=== PATIENT | female | born 2000 | race Caucasian/White ===

== ENCOUNTER 2022-06-15 19:04 | Emergency (ER) | payer MEDICAID, SELFPAY ==
--- NOTE | 2022-06-15 19:15 | ED.SKABFB ---
HPI - Skin/Abscess/Foreign Bdy General Chief complaint: Wound/Laceration Stated complaint: L breast painful lump; 4 days Time Seen by Provider: 06/15/22 19:09 Source: patient and family Limitations: no limitations History of Present Illness HPI narrative: this is a 21-year-old female with a 4 day history of painful lesion on the left breast area in the 1 o'clock position of the left areolar that is tender and warm to touch with no drainage no tender lymph nodes no fever chills no nausea vomiting. Patient is not nursing and there is no drainage or crustiness to the painful lesion. complaint: abscess/boil Onset (ago): day(s) Quality: aching Pain Consistency: constant Relieving factors: none Exacerbating factors: none and palpation Related Data Allergies Allergy/AdvReac Type Severity Reaction Status Date / Time Penicillins Allergy Unknown Verified 06/15/22 19:18 Review of Systems Review of Systems: All systems reviewed & are unremarkable except as noted in HPI and below PMFSH Past Medical History Medical History Patient denies medical problems Exam Const: General: healthy appearing Nutritional Appearance: well nourished Orientation/consciousness: patient oriented x3 Limitations: no limitations HENMT: Head: normal to inspection Ears: external ears normal Face and sinus: normal facial exam Mouth: Yes Normal oral and palatal mucosa present Eyes: EOM: EOMs intact bilaterally Neck: Neck: normal visual inspection Chest: Chest palpation & inspection: normal inspection of the chest Other: painful small 2cm lesion is warm and tender to touch on the left areolar at about 1 o'clock position with no drainage Cardio: Rate: regular rate Rhythm: regular rhythm GI: GI Palp: Yes Soft to palpation Auscultation: normal bowel sounds Skin: General skin exam: normal color Wounds: wounds noted Neuro: General: patient oriented x3 and no meningeal signs Psych: Mental Status: mental status grossly normal Affect: normal affect Course Course Emergency Course: dose of Bactrim p.o. was given while in the ER and medication sent to patient's local pharmacy. Critical Care Time Critical Care Time Critical Care Time: No Discharge Plan Discharge Clinical Impression: Breast abscess of female Patient Disposition: Home, Self-Care Condition: Stable Instructions: Antibiotic Form, Abscess (ED) Additional Instructions: take medicine as prescribed, can use warm compress to affected area as needed and can take Tylenol or Motrin for pain and inflammation and follow-up primary care physician if symptoms persist or worsen. Prescriptions: New sulfamethoxazole-trimethoprim [Bactrim DS] 800-160 mg tablet 1 tablet PO Q12H Qty: 20 0RF Follow-up/Referrals: UNKNOWN,DOCTOR [Primary Care Provider] - Time of Disposition: 19:21
[2022-06-15 19:16] VITALS: BP 128/91; PULSE 105; RESP 16; TEMP 36.1; O2SAT 99
[2022-06-15] MEDS: SULFAMETHOXAZOLE/TRIMETHOPRIM 800/160 MG DS TABLET 1 TAB PO (19:22)
[2022-06-15 19:36] VITALS: BP 128/80; PULSE 84; RESP 18; O2SAT 99
== END 2022-06-15 19:38 | disposition home or self-care (01) ==
PROVIDERS: Emergency Provider Emergency Medicine
DX: N61.1 Abscess of the breast and nipple (principal)
CPT/HCPCS: 99283; A9270

== ENCOUNTER 2022-08-14 11:25 | Emergency (ER) | payer MEDICAID, SELFPAY ==
[2022-08-14 11:30] VITALS: BP 126/76; PULSE 89; RESP 16; TEMP 36.7; O2SAT 97
[2022-08-14 11:35] VITALS: BP 126/76; PULSE 89; RESP 18; TEMP 36.7; O2SAT 97
--- NOTE | 2022-08-14 12:15 | ED.URI ---
HPI - URI/Sore Throat General Chief Complaint: Shortness of Breath/Dyspnea Stated Complaint: fever/Sob Source: patient and RN notes reviewed Mode of arrival: ambulatory Limitations: no limitations History of Present Illness MD elicited complaint: fever, cough and sore throat Onset (ago): day(s) (1) Consistency: constant Severity: moderate Description of mucous: clear Able to tolerate fluids by mouth: Yes Exacerbating factors: nothing Relieving factors: nothing Context: sick contacts ( both COVID and influenza) Associated symptoms: fever, chills, myalgias, headache and sore throat Treatments prior to arrival: none Related Data Home Medications Medication Instructions Recorded Confirmed No Home Medications 08/14/22 08/14/22 Allergies Allergy/AdvReac Type Severity Reaction Status Date / Time Penicillins Allergy Unknown Verified 08/14/22 11:49 Review of Systems Review of Systems: All systems reviewed & are unremarkable except as noted in HPI and below PMFSH Past Medical History Medical History (Updated 08/14/22 @ 12:54 by Adam De La Cruz MD) Patient denies medical problems Surgical History Surgical History (Updated 08/14/22 @ 12:23 by Adam De La Cruz MD) Scalp hematoma Social History Social History (Updated 08/14/22 @ 12:23 by Adam De La Cruz MD) Smoking status: Former smoker Alcohol intake: current Alcohol use details: Rare Substance use: never Exam Const: General: healthy appearing, no acute distress and alert Nutritional Appearance: well nourished and obese Orientation/consciousness: patient oriented x3 Limitations: no limitations Other: female tech in room during examination. HENMT: Head: normal to inspection Face/Nose/Sinus: Normal external nose present Face and sinus: normal facial exam Mouth: Yes moist mucous membranes Throat: posterior oropharynx normal Eyes: Conjunctivae: conjunctivae normal Pupils: Equal, round and reactive pupils present EOM: EOMs intact bilaterally Neck: Neck: normal visual inspection and no lymphadenopathy Resp: Effort & Inspection: normal respiratory effort Auscultation: clear to auscultation bilaterally Cardio: Rate: regular rate Rhythm: regular rhythm GI: GI Palp: Yes Soft to palpation and No Tenderness to palpation present (GI) Auscultation: normal bowel sounds Back/Spine/Pelvis: Cervical Spine: cervical ROM normal Thoracic/Lumbar Spine: thoraco-lumbar ROM normal Skin: General skin exam: normal color Rashes: no rashes Neuro: General: patient oriented x3, moves all extremities, no focal motor deficits and CN's II-XI intact bilaterally Speech: normal speech Gait exam (Neuro): Normal gait present Extrem: General: normal to inspection and no clubbing, cyanosis or edema Psych: Mental Status: mental status grossly normal Affect: normal affect Attitude: cooperative Course Vital Signs Vital signs: Vital Signs Temperature 36.7 C 08/14/22 11:30 Pulse Rate 89 08/14/22 11:30 Respiratory Rate 16 08/14/22 11:30 Blood Pressure 126/76 08/14/22 11:30 Pulse Oximetry 97 08/14/22 11:30 Oxygen Delivery Room Air 08/14/22 11:30 Temperature 36.7 C 08/14/22 11:35 Pulse Rate 89 08/14/22 11:35 Respiratory Rate 18 08/14/22 11:35 Blood Pressure 126/76 08/14/22 11:35 Pulse Oximetry 97 08/14/22 11:35 Oxygen Delivery Room Air 08/14/22 11:35 MDM - URI/Sore Throat Differential Diagnosis Differential diagnosis: Likely upper respiratory infection, viral infection, bronchitis, influenza and other (COVID) Lab Data Attestation: I reviewed the patient's lab results. Labs: Lab Results 08/14/22 Range/Units 11:56 Influenza A (RT-PCR) Pending Influenza B (RT-PCR) Pending RSV (RT-PCR) Pending SARS-CoV-2 RNA (RT-PCR) Pending Discharge Plan Discharge Clinical Impression: Viral infection Patient Disposition: Home, Self-Care Condition: Stable Instructions: Upper Respirato
[2022-08-14 12:19] LABS: Influenza A QL RT-PCR Negative (Negative); Influenza B QL RT-PCR Negative (Negative); RSV RNA, RT-PCR Negative (Negative); SARS-CoV-2 RNA PCR Negative (Negative)
[2022-08-14 12:50] VITALS: BP 124/60; PULSE 84; RESP 16; TEMP 36.8; O2SAT 98
== END 2022-08-14 13:00 | disposition home or self-care (01) ==
PROVIDERS: Emergency Provider Emergency Medicine
DX: B34.9 Viral infection, unspecified (principal); Z20.822 Contact with and (suspected) exposure to COVID-19
CPT/HCPCS: 87637; 99283

== ENCOUNTER 2022-11-01 09:30 | Emergency (ER) | payer MEDICAID, SELFPAY ==
--- NOTE | ~2022-11-01 | CT_ITS ---
Non-contrast Head CT History: Headache, head trauma Technique: Axial non-contrast imaging of the brain was performed. Dose reduction technique was used on this scan by utilizing automated exposure control and iterative reconstruction technique. The dose -length product (DLP) was 605.33 mGy-cm. Findings: There is no evidence of intracranial hemorrhage, mass lesion, or acute infarct. Brain par enchyma appears normal. The ventricles and subarachnoid spaces are normal in size. The calvarium ap pears normal. The visualized paranasal sinuses and mastoid air cells are clear. Impression: No significant abnormality seen. Reviewed, dictated and finalized at location . TER MANAGER Impression: No significant abnormality seen.
[2022-11-01 09:30] VITALS: BP 135/85; PULSE 85; RESP 16; TEMP 36.6; O2SAT 99
[2022-11-01 09:40] VITALS: BP 135/85; PULSE 85; RESP 16; TEMP 36.6; O2SAT 99
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
[2022-11-01] MEDS: KETOROLAC 30 MG/ML VIAL (*BKC) IM (10:34)
[2022-11-01 10:42] VITALS: BP 120/77; PULSE 87; RESP 16; TEMP 36.4; O2SAT 99
== END 2022-11-01 10:42 | disposition home or self-care (01) ==
PROVIDERS: Emergency Provider Emergency Medicine; PCP Nurse Practitioner Family
DX: G44.209 Tension-type headache, unspecified, not intractable (principal); Z87.828 Personal history of other (healed) physical injury and trauma
CPT/HCPCS: 70450; 96372; 99284; J1885

== ENCOUNTER 2023-01-11 11:57 | Emergency (ER) | payer MEDICAID, SELFPAY ==
[2023-01-11] VITALS (27 sets, daily range): BP systolic 107–157; BP diastolic 71–120; PULSE 72–108; RESP 14–24; TEMP 35.8–36.7; O2SAT 96–100
--- NOTE | ~2023-01-11 | XR_ITS ---
EXAMINATION: XR chest 1V portable DATE: 01/11/2023 14:39 INDICATION: Chest pain. Shortness of breath. TECHNIQUE: A single frontal view of the chest was obtained. COMPARISON: None. FINDINGS: There is no pneumonia, pleural effusion, or pneumothorax. The heart size is normal. IMPRESSION: 1. No acute cardiopulmonary disease. Reviewed, dictated and finalized at location A.
--- NOTE | 2023-01-11 12:12 | ECG_ITS ---
Measurements Intervals [place] Rate: 90 P: 6 CO: 156 QRS: 30 QRSD: 84 T: 29 QT: 355 QTc: 435 Interpretive Statements SINUS RHYTHM LOW QRS VOLTAGE IN PRECORDIAL LEADS BORDERLINE ECG NO PREVIOUS ECG AVAILABLE FOR COMPARISON Electronically Signed On 01-11-2023 16:01:20 CDT by Amrit Voss D.O.
--- NOTE | 2023-01-11 12:13 | ED.GENADULT ---
HPI - General Adult General Chief complaint: Shortness of Breath/Dyspnea Stated complaint: shortness of breath History of Present Illness HPI narrative: This is a 22-year-old female presenting ED with chief complaint of chest pain and difficulty breathing. Patient says is been going on for 2 weeks. She has a sharp pain in the center of her chest that is nonradiating, 6/10 in intensity it occurs randomly throughout the day lasting approximately 5-6 minutes at a time. She has never had this happen before there are no exacerbating or alleviating factors. Is associated with fatigue and runny nose. She has also had some dizziness when she stands. Patient states that many people at her work are positive for COVID. She has no history of blood clots or risk factors for DVT. Related Data Allergies Allergy/AdvReac Type Severity Reaction Status Date / Time Penicillins Allergy Unknown Verified 01/11/23 12:05 [facility] Past Medical History Medical History Morbid obesity Patient denies medical problems Surgical History Surgical History Scalp hematoma Social History Social History Smoking status: Former smoker Alcohol intake: current Alcohol use details: Rare Substance use: never Exam Narrative: APPEARANCE: No apparent distress. Head: atraumatic. EYES: EOMI, NOSE: Atraumatic NECK: Trachea midline RESPIRATORY: No increased rate of breathing, clear to auscultation CARDIOVASCULAR: Patient is tachycardic, no peripheral edema, ABDOMINAL: Non-distended , soft nontender guarding tenderness, no CVA tenderness MUSCULOSKELETAl: No obvious deformities NEURO: Alert. Moving 4/4 extremities SKIN:: Warm, dry. Normal color PSYCHIATRIC: Normal affect Course Vital Signs Vital signs: Vital Signs Temperature 96.9 F L 01/11/23 11:57 Pulse Rate 88 01/11/23 11:57 Respiratory Rate 16 01/11/23 11:57 Blood Pressure 125/75 01/11/23 11:57 Pulse Oximetry 98 01/11/23 11:57 Oxygen Delivery Room Air 01/11/23 11:57 Temperature 96.9 F L 01/11/23 11:57 Pulse Rate 88 01/11/23 11:57 Respiratory Rate 16 01/11/23 11:57 Blood Pressure 125/75 01/11/23 11:57 Pulse Oximetry 98 01/11/23 11:57 Oxygen Delivery Room Air 01/11/23 11:57 Medical Decision Making MDM Narrative Medical decision making narrative: -Presentation: 22-year-old female presents presenting with chest pain difficulty breathing and tachycardia. Recent COVID exposure. Chest x-ray EKG viral swabs and D-dimer will be obtained. -DDX includes but is not limited to: Viral syndrome, COVID-19, bronchitis, pulmonary embolism -Co-morbidities complicating care: COVID exposure -Social determinants of health: works in [employer], lives with her in aunt there are children -External Chart Review: none -Hx from independent Sources: none -Discussion of Management/Consultants: none -Independent interpretation of studies: CBC BMP, H.S. troponin, BNP, and D-dimer all normal. Independent EKG interpretation: Rhythm [sinus], Rate [90], [place] -[normal], NM -[normal], QRS [narrow], QTC [normal], T waves -[negative for concerning inversions], ST Segments - [Negative for concerning elevations] Final interpretations: [Normal Sinus Rhythm] Chest x-ray is unremarkable. UA showed 10-15 white blood cells per high-power field +2 leuk esterase. Patient is symptomatic will be treated with Keflex. Dx tests considered but not ordered: none -Procedures: none -Interventions: 2 L normal saline, Motrin, Tylenol -Shared decision making / Disposition: patient's lab work imaging and EKG are all within normal limits. She is well-appearing with stable vital signs. Patient will be discharged w/ antibiotics for UTI. She will have primary care follow-up. Patient is requestin
[2023-01-11 12:26] LABS: Basophils Absolute Auto 0.03 K/mm3 (0.00-0.10); Basophils Percent Auto 0.5 % (0.0-1.0); Eosinophils Absolute Auto 0.14 K/mm3 (0.02-0.50); Eosinophils Percent Auto 2.5 % (1.0-6.0); Hematocrit 39.4 % (35.0-49.0); Hemoglobin 13.2 g/dL (12.0-15.0); Immature Granulocyte Absolute 0.01 K/mm3 (0.00-0.00); Immature Granulocyte Percent A 0.2 % (0.0-0.0); Lymphocytes Absolute Auto 1.71 K/mm3 (1.10-4.50); Lymphocytes Percent Auto 30.7 % (18.0-42.0); Mean Corpuscular HGB Conc 33.5 g/dL (32.0-36.0); Mean Corpuscular Hemoglobin 31.5 pg (27.0-31.0); Mean Platelet Volume 9.5 fl (9.2-11.8); Monocytes Absolute Auto 0.54 K/mm3 (0.10-0.90); Monocytes Percent Auto 9.7 % (2.0-11.0); Neutrophils Absolute Auto 3.1 K/mm3 (1.7-7.2); Neutrophils Percent Auto 56.4 % (50.0-70.0); Platelet Count Result 366 K/mm3 (150-420); Red Blood Count 4.19 M/mm3 (4.20-5.40); Red Cell Distribution Width 11.7 % (11.6-14.4); White Blood Count 5.6 K/mm3 (4.8-10.8)
[2023-01-11] MEDS: ACETAMINOPHEN 500 MG TABLET 1000 MG PO (12:29)
[2023-01-11] MEDS: IBUPROFEN 400 MG TABLET 800 MG PO (12:29)
[2023-01-11] MEDS: SODIUM CHLORIDE 0.9% IV 2,000 ML 999 ML IV CONT (12:36)
[2023-01-11 12:38] LABS: D Dimer 0.27 mg/L (0.19-0.50)
[2023-01-11 12:44] LABS: Anion Gap 10 mmol/L (8-16); Blood Urea Nitrogen 5 mg/dL (7-18); Calcium 8.6 mg/dL (8.5-10.1); Carbon Dioxide 25 mmol/L (21-32); Chloride 106 mmol/L (98-108); Estimated Glomerular Filt Rate > 60; Glucose 100 mg/dL (70-99); Magnesium 1.8 mg/dL (1.8-2.4); Osmolality Calculated 289 mOsm/kg (285-295); Potassium 3.9 mmol/L (3.5-5.1); Sodium 141 mmol/L (136-145); Troponin I 4.1 ng/L (0.00-60.4)
[2023-01-11 12:49] LABS: NT Pro B Type Natriuretic Pept 38 pg/mL (0-125)
[2023-01-11 12:58] LABS: SPREG INTERNAL CONTROL Positive; Serum Qual hCG Negative
[2023-01-11 13:10] LABS: Influenza A QL RT-PCR Negative (Negative); Influenza B QL RT-PCR Negative (Negative); RSV RNA, RT-PCR Negative (Negative); SARS-CoV-2 RNA PCR Negative (Negative)
[2023-01-11 13:41] LABS: Appearance Urine Clear (Clear); Bilirubin Urine Negative (Negative); Blood Urine Negative (Negative); Color Urine Light Yellow (Yellow); Glucose Urine UA Negative (Negative); Ketones Urine Negative (Negative); Leukocyte Esterase Ur 2+ LEU/UL (Negative); Nitrate Urine Negative (Negative); Protein Urine Negative (Negative); pH Urine 6.5 (5.0-8.0)
[2023-01-11 13:43] LABS: Add Urine Microscopic? YES; RBC Urine None seen /hpf (0-2)
[2023-01-11 13:44] LABS: Bacteria Urine 1+ /hpf; Squamous Epithelial Cell Urine Few /hpf (Few)
--- NOTE | 2023-01-14 14:42 | PC.NURSE ---
FINAL URINE CULTURE RESULT: MIXED GENITAL CK ISOLATED. NO ACTION NEEDED.
== END 2023-01-11 14:56 | disposition home or self-care (01) ==
PROVIDERS: Emergency Provider Emergency Medicine
DX: N39.0 Urinary tract infection, site not specified (principal); B34.9 Viral infection, unspecified; Z20.822 Contact with and (suspected) exposure to COVID-19; Z87.891 Personal history of nicotine dependence
CPT/HCPCS: 36415; 71045; 80048; 81001; 83735; 83880; 84484; 84703; 85025; 85380; 87086; 87088; 87637; 93005; 96360; 96361; 99283; A9270; J7030

== ENCOUNTER 2023-11-25 21:54 | Emergency (ER) | payer MEDICAID, SELFPAY ==
[2023-11-25 22:00] VITALS: BP 147/86; PULSE 98; RESP 18; TEMP 36.7; O2SAT 98
--- NOTE | 2023-11-25 22:06 | ED_ITS ---
HPI - General Adult General Chief complaint: Eye Problems Stated complaint: Eye Problem Time Seen by Provider: 11/25/23 21:59 History of Present Illness HPI narrative: this is a 23-year-old female presenting with pain and foreign body sensation in her left eye. Started 4 hours prior to arrival. She has been rubbing it since then. She also notes she had a small amount of mucopurulent discharge. Patient has blurry vision in her left eye. patient does not were contact lenses Related Data Allergies Allergy/AdvReac Type Severity Reaction Status Date / Time Cephalosporins Allergy Severe Anaphylaxis Verified 11/25/23 22:29 Penicillins Allergy Severe Stopped Verified 11/25/23 22:29 Breathing PMFSH Past Medical History Medical History Morbid obesity Patient denies medical problems Surgical History Surgical History Scalp hematoma Social History Social History Smoking status: Former smoker Alcohol intake: current Alcohol use details: Rare Substance use: never Exam Narrative: APPEARANCE: No apparent distress. Head: atraumatic. EYES: EOMI, NOSE: Atraumatic NECK: Trachea midline RESPIRATORY: No increased rate of breathing CARDIOVASCULAR: RRR, ABDOMINAL: Non-distended MUSCULOSKELETAl: No obvious deformities NEURO: Alert. Moving 4/4 extremities SKIN:: Warm, dry. Normal color PSYCHIATRIC: Normal affect eye exam right eye 20 50 left eye 20/25 both 20 30 fluorescein uptake shows small corneal abrasion on the left eye, right eye normal, no Reva sign IOP right 6 IOP left 9 no foreign bodies noted on exam Medical Decision Making MDM Narrative Medical decision making narrative: -Course: 23-year-old female presenting with left eye pain and foreign body sensation. Found a small corneal abrasion. No other foreign bodies noted. Patient will be discharged on Ocuflox eyedrops with ophthalmology follow-up. -DDX includes but is not limited to: Bacterial conjunctivitis, viral c onjunctivitis, corneal abrasion -Social determinants of health: works at [employer] -Shared decision making / Disposition: discharged with ophthalmology follow-up -RX Ocuflox Discharge Plan Discharge Clinical Impression: Corneal abrasion Patient Disposition: Home, Self-Care Condition: Stable Instructions: Antibiotic Form, Corneal Abrasion (ED) Additional Instructions: You have a corneal abrasion on her left eye. Please use Ocuflox eyedrops in both eyes as instructed. Please follow-up with ophthalmology in 24-48 hours. Please call [facility] @ to arrange follow up. Prescriptions: New ofloxacin [Ocuflox] 0.3 % drops See Rx Instructions .ROUTE .COMPLEX Qty: 5 0RF Rx Instructions: put 1-2 drps into affected eye(s) every 2-4 h x 2 days, then 1-2 drps 4 times/day days 3-7 No Action sulfamethoxazole-trimethoprim 800-160 mg tablet 1 tablet PO Q12H Qty: 14 0RF Follow-up/Referrals: UNKNOWN,DOCTOR [Primary Care Provider] -
== END 2023-11-25 22:40 | disposition home or self-care (01) ==
LOC: CHSED 22:33
PROVIDERS: Emergency Provider Emergency Medicine
DX: S05.02XA Injury of conjunctiva and corneal abrasion without foreign body, left eye, initial encounter (principal); T14.90XA Injury, unspecified, initial encounter; E66.01 Morbid (severe) obesity due to excess calories; Z68.41 Body mass index [BMI] 40.0-44.9, adult; Z87.891 Personal history of nicotine dependence
CPT/HCPCS: 99283

== ENCOUNTER 2024-02-27 18:50 | Emergency (ER) | payer OTHER, SELFPAY ==
[2024-02-27 18:51] VITALS: BP 137/95; PULSE 121; RESP 22; TEMP 36.5; O2SAT 98
--- NOTE | 2024-02-27 19:13 | ED.GENADULT ---
HPI - General Adult General Chief complaint: Skin/Abscess/Foreign Body Stated complaint: skin abscess on labia Time Seen by Provider: 02/27/24 18:56 History of Present Illness HPI narrative: this is a 23-year-old female presenting with a painful lump on her labia. She 1st noticed yesterday. She has never had an abscess before. No systemic signs of illness such as fever chills nausea vomiting or diarrhea. No urinary symptoms or vaginal discharge. Related Data Home Medications Medication Instructions Recorded Confirmed No Home Medications 02/27/24 02/27/24 Allergies Allergy/AdvReac Type Severity Reaction Status Date / Time Cephalosporins Allergy Severe Anaphylaxis Verified 02/27/24 19:12 Penicillins Allergy Severe Stopped Verified 02/27/24 19:12 Breathing PMFSH Past Medical History Medical History Morbid obesity Patient denies medical problems Surgical History Surgical History Scalp hematoma Social History Social History Smoking status: Former smoker Alcohol intake: current Alcohol use details: Rare Substance use: never Course Vital Signs Vital signs: Vital Signs Temperature 97.7 F 02/27/24 18:51 Pulse Rate 121 H 02/27/24 18:51 Respiratory Rate 22 H 02/27/24 18:51 Blood Pressure 137/95 H 02/27/24 18:51 Pulse Oximetry 98 02/27/24 18:51 Oxygen Delivery Room Air 02/27/24 18:51 Temperature 97.7 F 02/27/24 18:51 Pulse Rate 121 H 02/27/24 18:51 Respiratory Rate 22 H 02/27/24 18:51 Blood Pressure 137/95 H 02/27/24 18:51 Pulse Oximetry 98 02/27/24 18:51 Oxygen Delivery Room Air 02/27/24 18:51 Procedures Abscess I/D other: Date of Incision: 02/27/24 Time of Incision: 19:14 Side (if applicable): right (labia) Local Anesthetic: lidocaine 1% Amount of anesthesia used (mL): 4 Technique: incised with #11 blade Amount of fluid expressed (mL): 1 Irrigation: Yes Packing used?: none I&D Results: Pus and Blood Complications: pain Medical Decision Making MDM Narrative Medical decision making narrative: -Course: 20-year-old female presented his small labile abscess. It was incised and drained. Patient discharged primary care follow-up -DDX includes but is not limited to: labial abscess, Bartholin's gland cyst -Co-morbidities complicating care: obesity, mental illness -Procedures: I&D -Shared decision making / Disposition: discharged Vital Signs Vital Signs: Vital Signs Temperature 97.7 F 02/27/24 18:51 Pulse Rate 121 H 02/27/24 18:51 Respiratory Rate 22 H 02/27/24 18:51 Blood Pressure 137/95 H 02/27/24 18:51 Pulse Oximetry 98 02/27/24 18:51 Oxygen Delivery Room Air 02/27/24 18:51 Temperature 97.7 F 02/27/24 18:51 Pulse Rate 121 H 02/27/24 18:51 Respiratory Rate 22 H 02/27/24 18:51 Blood Pressure 137/95 H 02/27/24 18:51 Pulse Oximetry 98 02/27/24 18:51 Oxygen Delivery Room Air 02/27/24 18:51 Discharge Plan Discharge Clinical Impression: Abscess Patient Disposition: Home, Self-Care Condition: Stable Instructions: Antibiotic Form, Abscess (ED) Additional Instructions: please follow-up your primary care physician. Return if you develop severe pain redness or feel like the infection is getting worse. Prescriptions: No Action ofloxacin [Ocuflox] 0.3 % drops See Rx Instructions .ROUTE .COMPLEX Qty: 5 0RF Rx Instructions: put 1-2 drps into affected eye(s) every 2-4 h x 2 days, then 1-2 drps 4 times/day days 3-7 Follow-up/Referrals: UNKNOWN,DOCTOR [Primary Care Provider] -
[2024-02-27] MEDS: LIDOCAINE HCL 1% LOCAL INJ 10 ML VIAL INFILTRATE (19:15)
[2024-02-27 19:25] VITALS: BP 115/66; PULSE 98; RESP 18; O2SAT 98
== END 2024-02-27 19:32 | disposition home or self-care (01) ==
LOC: CHSED 19:35
PROVIDERS: Emergency Provider Emergency Medicine
DX: N76.4 Abscess of vulva (principal); Z87.891 Personal history of nicotine dependence
CPT/HCPCS: 10060; 99283